=== PATIENT | male | born 1955 | race Caucasian/White ===

== ENCOUNTER 2017-06-13 12:07 | Emergency (ER) | payer MEDICAID ==
[2017-06-13 12:10] VITALS: BP 163/110; PULSE 73; RESP 14; TEMP 98.1; O2SAT 97
[2017-06-13] MEDS ORDERED: ACETAMINOPHEN/HYDROcodone 325 MG/5 MG TAB PO ONE (13:30)
[2017-06-13] MEDS ORDERED: CYCLOBENZAPRINE HCL 10 MG TAB PO ONE (13:30)
--- NOTE | 2017-06-13 13:36 | PD ---
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 Rated 8/10, described as constant, sometimes sharp. Exacerbated by any movement or weightbearing. Denies numbness , tingling, weakness of the extremity. Denies saddle anesthesia or urinary/ fecal incontinence. Patient is normally ambulatory with a cane. He states that he has been treating by lying in bed and taking 5 mg Lortab. Last dose at 10 AM. PFSH Social History Alcohol Use: No Tobacco Use: No Substance Use: No Allergies-Medications (Allergen,Severity, Reaction): Coded Allergies: No Known Allergies (Unverified , 10/24/14) Reported Meds & Prescriptions Reported Meds & Active Scripts Active Flexeril (Cyclobenzaprine HCl) 10 Mg Tab 10 Mg PO TID Ibuprofen 600 Mg Tab 600 Mg PO Q8HR PRN Review of Systems Except as stated in HPI: all other systems reviewed are Neg Physical Exam Narrative GENERAL: Well-nourished, well-developed white male in no acute distress. SKIN: Focused skin assessment warm/dry. HEAD: Normocephalic. EYES: No scleral icterus. No injection or drainage. NECK: Supple, trachea midline. No JVD or lymphadenopathy. CARDIOVASCULAR: Regular rate and rhythm without murmurs, gallops, or rubs. RESPIRATORY: Breath sounds equal bilaterally. No accessory muscle use. GASTROINTESTINAL: Abdomen soft, non-tender, nondistended. MUSCULOSKELETAL: No cyanosis, or edema. FOCUSED RIGHT LOWER EXTREMITY EXAM: 2+ DP pulse. There is muscle wasting in the lower extremity. Patient is wearing a brace. He is able to flex and extend the knee and hip. Flexion of the hip elicits pain. Further evaluation deferred secondary to pain. Neurovascularly intact. BACK: No obvious deformity. No CVA tenderness. Tender to palpation of the lumbar midline spine and right paraspinal musculature. Data Data Last Documented VS Vital Signs Date Time Temp Pulse Resp B/P (MAP) Pulse Ox O2 Delivery O2 Flow Rate FiO2 06/13/17 12:10 98.1 73 14 163/110 (127) 97 Orders Orders Hip, Uni(Ap&Lat) Wo Ap Pelvis (06/13/17 13:25) Ct Lumb Spine W/O Contrast (06/13/17 13:25) Acetamin-Hydrocod 325-5 Mg ([place] 5-325 (06/13/17 13:30) Cyclobenzaprine (Flexeril) (06/13/17 13:30) Ed Discharge Order (06/13/17 14:46) [facility] Medical Decision Making Medical Screen Exam Complete: Yes Emergency Medical Condition: Yes Differential Diagnosis Acute on chronic back pain versus osteoarthritis versus discitis versus other Narrative Course 61-year-old male with PMH of 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 Rated 8/10, described as constant, sometimes sharp. Exacerbated by any movement or weightbearing. Denies numbness , tingling, weakness of the extremity. Denies saddle anesthesia or urinary/ fecal incontinence. Patient is normally ambulatory with a cane. He states that he has been treating by lying in bed and taking 5 mg Lortab. Last dose at 10 AM. Vitals reviewed. On physical exam the patient has wasting of the right lower extremity. There is tenderness in the midline and paraspinal musculature of the lumbar area. He is able to flex and extend the knee and hip. Flexion of the hip elicits pain. Patient was administered 5 mg more by mouth, 10 mg Flexeril by mouth. X-ray of the right hip reveals no acute injuries. CT of the lumbar spine reveals several degenerative issues, nothing acute per radiology read. I discussed the results of the workup with the patient. I provided him with a copy of his CT report. He is prescribed a short course of anti-inflammatories and muscle relaxants. He is instructed to take the medication as prescribed, continue with home pain medications, resume, normal gentle activities as tolerated, follow up with the neurologist. He indicated understanding of instructions and is agreeable to the care plan. The patient is stable and discharged home. Diagnosis Primary Impression: Degenerative disc disease, lumbar Additional Impression: Back pain Qualified Codes: M54.5 - Low back pain Referrals: Alli Bhagat MD Patient Instructions: Back Pain (ED), Degenerative Disc Disease (ED), General Instructions Additional Instructions: Rest, hydrate. A mixture of rest and normal, gentle activity is best for back pain. Take anti-inflammatories and muscle relaxants as prescribed. Do not drive while taking muscle relaxants as they can make you drowsy. Continue with at home pain medications. Follow-up with Dr. Bhagat or the neurologist of your choice. Return to the ED for worsening symptoms or any urgent or emergent medical condition. Med/Other Pt SpecificInfo: Prescription(s) given Scripts Cyclobenzaprine (Flexeril) 10 Mg Tab 10 MG PO TID for Muscle Spasm, #15 TAB 0 Refills Prov: Heena Prince DO 06/13/17 Ibuprofen (Ibuprofen) 600 Mg Tab 600 MG PO Q8HR Y for PAIN, #15 TAB 0 Refills Prov: Heena Prince DO 06/13/17 Disposition: 01 DISCHARGE HOME Condition: Stable Varsha Devries Jun 13, 2017 13:36
--- NOTE | 2017-06-13 14:27 | RADRPT ---
EXAM DATE/TIME: 06/13/2017 13:57 [facility] COMPARISON: No previous studies available for comparison. INDICATIONS : Right hip and pelvis pain. MEDICAL HISTORY : Childhood polio. SURGICAL HISTORY : None. ENCOUNTER: Initial ACUITY: 1 day PAIN SCORE: 7/10 LOCATION: Right Hip and pelvis. FINDINGS: 2 views of the pelvis demonstrate atrophic changes involving the right proximal femur and right hemip byron consistent with previous polio. No acute fracture is seen. The bony structures are otherwise in tact. CONCLUSION: 1. Atrophy of the right hemipelvis and right proximal femur consistent with previous polio. No acute bony abnormality is seen. Jerry Mcqueen MD on June 13, 2017 at 14:25 Board Certified Radiologist. This report was verified electronically.
--- NOTE | 2017-06-13 14:36 | RADRPT ---
EXAM DATE/TIME: 06/13/2017 14:07 [facility] COMPARISON: No previous studies available for comparison. INDICATIONS : Back pain for 2 weeks RADIATION DOSE: 35.86 CTDIvol (mGy) MEDICAL HISTORY : None SURGICAL HISTORY : None. ENCOUNTER: Initial ACUITY: 2 weeks PAIN SCALE: 8/10 LOCATION: low back TECHNIQUE: Volumetric scanning of the lumbar spine was performed. Multiplanar reconstructions in the sagittal, coronal and oblique axial planes were performed. Using automated exposure control and adjustment of the mA and/or kV according to patient size, radiation dose was kept as low as reasonably achievable t o obtain optimal diagnostic quality images. DICOM format image data is available electronically for review and comparison. FINDINGS: Sagittal and coronal reformats are provided. These demonstrate adequate alignment of the lumbar verte bral bodies. No acute compression fracture is identified. There are degenerative changes throughout t he lower lumbar spine. No destructive lesion is present. T12-L1: There is a small broad-based disc bulge. There is mild facet arthritis bilaterally. The thecal space and foramina are adequate. L1-L2: There is a degenerated disc with small broad-based disc bulge. There is moderate facet arthritis bila terally. The thecal space and foramina appear adequate. L2-L3: There is facet arthritis bilaterally. The thecal space and foramina are adequate. L3-L4: There is a degenerated disc with a broad-based disc bulge. This effaces the ventral thecal sac. There is mild encroachment of disc on the lateral recess and base of the foramina bilaterally. The residua l thecal space is adequate. The facet joints demonstrate moderate degenerative changes. L4-L5: There is a degenerated disc with broad-based disc bulge. This effaces the ventral thecal sac. There i s moderate facet arthritis bilaterally. The residual thecal space and foramina appear adequate. L5-S1: There is a degenerated disc with a broad-based disc bulge. There is moderate facet arthritis bilatera lly. The thecal space and foramina are adequate. CONCLUSION: 1. Degenerative changes of the lumbar spine as above. No acute abnormality identified. Jerry Mcqueen MD on June 13, 2017 at 14:27 Board Certified Radiologist. This report was verified electronically.
[2017-06-13] MEDS ORDERED: IBUP-232 PO (14:47)
[2017-06-13] MEDS ORDERED: CYCL10TA PO (14:47)
== END 2017-06-13 15:03 | disposition home or self-care (01) ==
LOC: NEPK 12:07
DX: M51.36 Other intervertebral disc degeneration, lumbar region (principal); M62.58 Muscle wasting and atrophy, not elsewhere classified, other site; G81.91 Hemiplegia, unspecified affecting right dominant side; Z86.12 Personal history of poliomyelitis; Z79.899 Other long term (current) drug therapy
CPT/HCPCS: 72131; 73502; 99284